=== PATIENT | male | born 1950 | race Caucasian/White ===

== ENCOUNTER 2022-07-08 13:54 | Inpatient (IN) | payer OTHER, MEDICAID ==
[~2022-07-08] VITALS: Ht 185.4 cm; Wt 67.8 kg
[2022-07-08] MEDS ORDERED: SODIUM CHLORIDE 0.9% 1,000 ML IV ONE (14:00)
[2022-07-08 15:04] LABS: Basophils # (auto) 0 10 ^3/uL (0-0.2); Basophils % (auto) 0.3 % (0.0-2.0); Eosinophils # (auto) 0 10 ^3/uL (0-0.8); Eosinophils % (auto) 0.1 % (0.0-7.0); Hemoglobin 11.7 g/dL (13.5-17.5); Lymphocytes # (auto) 0.2 10 ^3/uL (0.4-5.4); Lymphocytes % (auto) 4.4 % (10.0-50.0); Mean Corpuscular Hemoglobin 31.7 pg (28.0-32.0); Mean Corpuscular Hgb Conc. 33.3 g/dL (32.0-36.0); Mean Corpuscular Volume 95.1 fL (80.0-100.0); Monocytes # (auto) 0.2 10 ^3/uL (0-1.3); Monocytes % (auto) 7.1 % (0.0-12.0); Neutrophils % (auto) 88.1 % (37.0-80.0); Nucleated Red Blood Cells % 0.1 %; Red Blood Cells 3.68 10^6/uL (4.5-5.90); Red Cell Distribution Width 14.3 % (11.8-14.3); White Blood Cell 3.4 10^3/uL (4.4-10.8)
[2022-07-08 15:24] LABS: Albumin 2.1 g/dL (3.4-5.0); Calcium 7.8 mg/dL (8.5-10.1); Potassium 3.4 mmol/L (3.5-5.1)
[2022-07-08 15:27] LABS: BUN/Creatinine Ratio 30.4
[2022-07-08 15:30] LABS: Bilirubin, Total 0.5 mg/dL (0.2-1.0); Total Protein 5.8 g/dL (6.4-8.2)
[2022-07-08] MEDS ORDERED: AZITHROMYCIN 500MG/ 250ML 250 ML IV ONE (22:15)
[2022-07-08] MEDS ORDERED: TEMAZEPAM 15 MG CAP PO PRN (22:15)
[2022-07-08] MEDS ORDERED: DEXTROSE (50%) 50ML SYRG IV PRN (22:15)
[2022-07-08] MEDS ORDERED: ONDANSETRON HCL 4 MG/2 ML VIAL IV PRN (22:15)
[2022-07-08 22:35] LABS: Calcium 8.1 mg/dL (8.5-10.1); Potassium 3.2 mmol/L (3.5-5.1)
[2022-07-08 22:40] LABS: BUN/Creatinine Ratio 31.7
[2022-07-09] MEDS: InsuLIN REG 1unit/0.01ml Soln (100units/ml) SC SCH ×6 (02:04→20:28)
[2022-07-09] MEDS: ACCU-CHEK COMFORT CURVE STRIP VI SCH ×6 (02:07→20:30)
[2022-07-09 04:35] LABS: Urine Amorphous Crystal FEW /hpf (None Seen); Urine Bacteria NONE SEEN /hpf (None Seen); Urine Blood 1+ /uL (Negative); Urine Specific Gravity 1.023 (1.001-1.035); Urine WBC 12 /hpf (0 - 3)
[2022-07-09 05:43] LABS: Basophils # (auto) 0 10 ^3/uL (0-0.2); Basophils % (auto) 0.1 % (0.0-2.0); Eosinophils # (auto) 0 10 ^3/uL (0-0.8); Eosinophils % (auto) 0.1 % (0.0-7.0); Hematocrit 29.2 % (41.0-53.0); Hemoglobin 9.4 g/dL (13.5-17.5); Lymphocytes # (auto) 0.5 10 ^3/uL (0.4-5.4); Lymphocytes % (auto) 4.4 % (10.0-50.0); Mean Corpuscular Hemoglobin 31.3 pg (28.0-32.0); Mean Corpuscular Hgb Conc. 32.1 g/dL (32.0-36.0); Mean Corpuscular Volume 97.5 fL (80.0-100.0); Monocytes # (auto) 1.1 10 ^3/uL (0-1.3); Neutrophils # (auto) 10.2 10 ^3/uL (1.6-8.6); Neutrophils % (auto) 86.4 % (37.0-80.0); Red Cell Distribution Width 14.6 % (11.8-14.3); White Blood Cell 11.8 10^3/uL (4.4-10.8)
[2022-07-09 05:56] LABS: Albumin 2.1 g/dL (3.4-5.0); BUN/Creatinine Ratio 33.1; Calcium 7.9 mg/dL (8.5-10.1)
[2022-07-09 05:59] LABS: Bilirubin, Total 0.4 mg/dL (0.2-1.0); Total Protein 6.2 g/dL (6.4-8.2)
[2022-07-09 06:26] LABS: Potassium 2.9 mmol/L (3.5-5.1)
[2022-07-09] MEDS ORDERED: POTASSIUM CHL 20 Meq TABLET PO ONE (07:00)
[2022-07-09] MEDS: LEVOTHYROXINE SODIUM 50 MCG TAB PO SCH (07:09)
[2022-07-09] MEDS ORDERED: cefTRIAXone 1GM/50ML D5W 50 ML IV SCH (09:00)
[2022-07-09] MEDS: ENOXAPARIN SOD 40 MG/0.4 ML SYRINGE SC SCH (10:01)
[2022-07-09 12:01] VITALS: BP 134/72
[2022-07-09] MEDS ORDERED: SODIUM CHLORIDE 0.9% 1,000 ML IV SCH (12:30)
[2022-07-09] MEDS: SODIUM CHLORIDE 0.9% 1,000 ML IV SCH (13:18)
[2022-07-09] MEDS: CEFEPIME 1GM/ 50ML 50 ML IV SCH ×2 (14:26→22:00)
[2022-07-09] MEDS: POTASSIUM CHL 20MEQ/100ML 100 ML IV SCH ×2 (15:12→19:08)
[2022-07-09] MEDS ORDERED: GLIP5TAB12 PO (18:33)
[2022-07-09] MEDS ORDERED: CANA100T PO (18:33)
[2022-07-09] MEDS ORDERED: QUET400T13 PO (18:33)
[2022-07-09] MEDS ORDERED: FAMO20TA10 PO (18:33)
[2022-07-09] MEDS ORDERED: LEVO50TA7 PO (18:33)
[2022-07-09] MEDS ORDERED: DOCU100T15 PO (18:33)
[2022-07-09] MEDS ORDERED: SIMV-13 PO (18:33)
[2022-07-09] MEDS ORDERED: METF-869 PO (18:33)
[2022-07-09] MEDS ORDERED: RISP4TAB53 PO (18:33)
[2022-07-09 22:00] VITALS: BP 131/74
[2022-07-09] MEDS ORDERED: AZITHROMYCIN 500MG/ 250ML 250 ML IV SCH (22:00)
[2022-07-09] MEDS: ATORVASTATIN 20 MG TAB PO SCH (22:52)
[2022-07-10] MEDS: ACCU-CHEK COMFORT CURVE STRIP VI SCH ×6 (00:33→22:00)
[2022-07-10] MEDS: InsuLIN REG 1unit/0.01ml Soln (100units/ml) SC SCH ×6 (00:34→22:00)
[2022-07-10] MEDS: SODIUM CHLORIDE 0.9% 1,000 ML IV SCH ×3 (00:35→18:45)
[2022-07-10] MEDS: POTASSIUM CHL 20MEQ/100ML 100 ML IV SCH (00:35)
[2022-07-10 05:00] VITALS: BP 147/72
[2022-07-10 06:17] LABS: Basophils # (auto) 0 10 ^3/uL (0-0.2); Basophils % (auto) 0.1 % (0.0-2.0); Eosinophils # (auto) 0 10 ^3/uL (0-0.8); Hematocrit 28.6 % (41.0-53.0); Hemoglobin 9.6 g/dL (13.5-17.5); Lymphocytes # (auto) 0.3 10 ^3/uL (0.4-5.4); Lymphocytes % (auto) 1.5 % (10.0-50.0); Mean Corpuscular Hemoglobin 30.9 pg (28.0-32.0); Mean Corpuscular Hgb Conc. 33.4 g/dL (32.0-36.0); Mean Corpuscular Volume 92.6 fL (80.0-100.0); Monocytes % (auto) 5.4 % (0.0-12.0); Neutrophils # (auto) 17.3 10 ^3/uL (1.6-8.6); Red Blood Cells 3.09 10^6/uL (4.5-5.90); Red Cell Distribution Width 13.9 % (11.8-14.3); White Blood Cell 18.6 10^3/uL (4.4-10.8)
[2022-07-10] MEDS: LEVOTHYROXINE SODIUM 50 MCG TAB PO SCH (06:30)
[2022-07-10 06:34] LABS: BUN/Creatinine Ratio 37.7; Potassium 3.4 mmol/L (3.5-5.1)
[2022-07-10] MEDS: ENOXAPARIN SOD 40 MG/0.4 ML SYRINGE SC SCH (09:26)
[2022-07-10] MEDS: CEFEPIME 1GM/ 50ML 50 ML IV SCH ×2 (09:29→22:15)
[2022-07-10 09:36] VITALS: BP 130/84
[2022-07-10] MEDS ORDERED: VANCOMYCIN PER PHARMACY 0 MG IV SCH (11:15)
[2022-07-10] MEDS ORDERED: QUEtiapine FUMARATE 100 MG TAB PO ONE (11:15)
[2022-07-10] MEDS ORDERED: risperiDONE 1 MG TAB PO ONE (11:15)
[2022-07-10] MEDS ORDERED: VANCOMYCIN 1GM/250ML 250 ML IV ONE (11:30)
[2022-07-10 13:02] VITALS: BP 158/93
[2022-07-10 14:56] LABS: Urine Bacteria FEW /hpf (None Seen); Urine Blood 3+ /uL (Negative); Urine Hyaline Cast FEW /lpf (0 - 2); Urine Specific Gravity 1.012 (1.001-1.035); Urine WBC 49 /hpf (0 - 3)
[2022-07-10] MEDS ORDERED: POTASSIUM CHL 20 Meq TABLET PO ONE (16:15)
[2022-07-10] MEDS ORDERED: POTASSIUM CHL 20MEQ/100ML 100 ML IV ONE (16:15)
[2022-07-10 17:00] VITALS: BP 134/78
[2022-07-10] MEDS ORDERED: POTASSIUM CHLORIDE 20 MEQ, LIDOCAINE 1% (LOCAL ANESTH.) 2 ML in SODIUM CHL 0.9% 100 ML IV ONE (18:30)
[2022-07-10] MEDS ORDERED: DEXTROSE (50%) 50ML SYRG IV PRN (20:00)
[2022-07-10 20:10] LABS: INR 1.18 (0.9-1.15)
[2022-07-10] MEDS ORDERED: IOHEXOL 350 MG/ML 100ML IJ ONE (20:29)
[2022-07-10] MEDS ORDERED: QUEtiapine FUMARATE 100 MG TAB ONE ×2 (21:36→21:38)
[2022-07-10 22:00] VITALS: BP 145/80
[2022-07-10] MEDS: ATORVASTATIN 20 MG TAB PO SCH (22:13)
[2022-07-10] MEDS: risperiDONE 1 MG TAB PO SCH (22:14)
[2022-07-10] MEDS: QUEtiapine FUMARATE 100 MG TAB PO SCH (22:14)
[2022-07-11] MEDS: VANCOMYCIN 1GM/250ML 250 ML IV SCH ×2 (04:00→20:00)
[2022-07-11] MEDS: SODIUM CHLORIDE 0.9% 1,000 ML IV SCH ×2 (04:45→12:11)
[2022-07-11 05:00] VITALS: BP 124/67
[2022-07-11] MEDS: ACETAMINOPHEN 325 MG TAB PO PRN (05:25)
[2022-07-11] MEDS: InsuLIN REG 1unit/0.01ml Soln (100units/ml) SC SCH ×4 (06:53→22:00)
[2022-07-11] MEDS: LEVOTHYROXINE SODIUM 50 MCG TAB PO SCH (06:53)
[2022-07-11] MEDS: ACCU-CHEK COMFORT CURVE STRIP VI SCH ×4 (06:59→22:00)
[2022-07-11 07:29] LABS: Potassium 3.7 mmol/L (3.5-5.1)
[2022-07-11 07:38] LABS: BUN/Creatinine Ratio 31.1; Calcium 7.6 mg/dL (8.5-10.1)
[2022-07-11 07:45] LABS: Basophils # (auto) 0 10 ^3/uL (0-0.2); Basophils % (auto) 0.2 % (0.0-2.0); Eosinophils # (auto) 0.1 10 ^3/uL (0-0.8); Eosinophils % (auto) 0.7 % (0.0-7.0); Hemoglobin 8.6 g/dL (13.5-17.5); Lymphocytes # (auto) 0.4 10 ^3/uL (0.4-5.4); Lymphocytes % (auto) 2.2 % (10.0-50.0); Mean Corpuscular Hemoglobin 30.7 pg (28.0-32.0); Mean Corpuscular Volume 93.2 fL (80.0-100.0); Monocytes # (auto) 0.9 10 ^3/uL (0-1.3); Monocytes % (auto) 5.7 % (0.0-12.0); Neutrophils # (auto) 14.7 10 ^3/uL (1.6-8.6); Neutrophils % (auto) 91.2 % (37.0-80.0); Red Blood Cells 2.79 10^6/uL (4.5-5.90); Red Cell Distribution Width 14.1 % (11.8-14.3); White Blood Cell 16.1 10^3/uL (4.4-10.8)
[2022-07-11 09:00] VITALS: BP 142/81
[2022-07-11] MEDS: QUEtiapine FUMARATE 100 MG TAB PO SCH ×2 (10:10→21:48)
[2022-07-11] MEDS: ENOXAPARIN SOD 40 MG/0.4 ML SYRINGE SC SCH (10:10)
[2022-07-11] MEDS: risperiDONE 1 MG TAB PO SCH ×2 (10:10→21:48)
[2022-07-11] MEDS: CEFEPIME 1GM/ 50ML 50 ML IV SCH ×2 (10:11→22:04)
[2022-07-11 13:14] VITALS: BP 158/87
[2022-07-11 17:00] VITALS: BP 159/90
[2022-07-11] MEDS: ATORVASTATIN 20 MG TAB PO SCH (21:49)
[2022-07-11 21:54] VITALS: BP 139/71
[2022-07-12] MEDS: SODIUM CHLORIDE 0.9% 1,000 ML IV SCH ×3 (00:45→20:45)
[2022-07-12 05:00] VITALS: BP 141/85
[2022-07-12] MEDS: LEVOTHYROXINE SODIUM 50 MCG TAB PO SCH (06:31)
[2022-07-12] MEDS: InsuLIN REG 1unit/0.01ml Soln (100units/ml) SC SCH ×4 (06:31→22:51)
[2022-07-12] MEDS: ACCU-CHEK COMFORT CURVE STRIP VI SCH ×4 (06:42→22:00)
[2022-07-12 07:07] LABS: Basophils # (auto) 0 10 ^3/uL (0-0.2); Basophils % (auto) 0.2 % (0.0-2.0); Eosinophils # (auto) 0.4 10 ^3/uL (0-0.8); Eosinophils % (auto) 2.5 % (0.0-7.0); Hematocrit 25.5 % (41.0-53.0); Hemoglobin 8.6 g/dL (13.5-17.5); Lymphocytes # (auto) 0.5 10 ^3/uL (0.4-5.4); Lymphocytes % (auto) 3.4 % (10.0-50.0); Mean Corpuscular Hemoglobin 31.5 pg (28.0-32.0); Mean Corpuscular Hgb Conc. 33.5 g/dL (32.0-36.0); Mean Corpuscular Volume 93.8 fL (80.0-100.0); Neutrophils % (auto) 86.9 % (37.0-80.0); Red Blood Cells 2.72 10^6/uL (4.5-5.90); Red Cell Distribution Width 14.3 % (11.8-14.3); White Blood Cell 14.9 10^3/uL (4.4-10.8)
[2022-07-12 07:27] LABS: Calcium 7.4 mg/dL (8.5-10.1); Potassium 3.4 mmol/L (3.5-5.1)
[2022-07-12 07:30] LABS: BUN/Creatinine Ratio 32.9
[2022-07-12 09:00] VITALS: BP 148/77
[2022-07-12] MEDS: risperiDONE 1 MG TAB PO SCH ×2 (09:50→22:42)
[2022-07-12] MEDS: QUEtiapine FUMARATE 100 MG TAB PO SCH ×2 (09:51→22:43)
[2022-07-12] MEDS: ENOXAPARIN SOD 40 MG/0.4 ML SYRINGE SC SCH (09:52)
[2022-07-12] MEDS: ACETAMINOPHEN 325 MG TAB PO PRN (09:52)
[2022-07-12] MEDS: cefTRIAXone 1GM/50ML D5W 50 ML IV SCH (11:31)
[2022-07-12 13:00] VITALS: BP 130/72
[2022-07-12] MEDS: VANCOMYCIN 1GM/250ML 250 ML IV SCH (13:02)
[2022-07-12 17:00] VITALS: BP 136/68
[2022-07-12 22:00] VITALS: BP 143/79
[2022-07-12] MEDS: ATORVASTATIN 20 MG TAB PO SCH (22:43)
[2022-07-13] MEDS: VANCOMYCIN 1GM/250ML 250 ML IV SCH ×2 (03:58→20:04)
[2022-07-13] MEDS: ACCU-CHEK COMFORT CURVE STRIP VI SCH ×4 (06:31→22:00)
[2022-07-13] MEDS: LEVOTHYROXINE SODIUM 50 MCG TAB PO SCH (06:31)
[2022-07-13] MEDS: InsuLIN REG 1unit/0.01ml Soln (100units/ml) SC SCH ×4 (06:38→22:00)
[2022-07-13] MEDS: SODIUM CHLORIDE 0.9% 1,000 ML IV SCH ×2 (06:45→11:20)
[2022-07-13 08:00] VITALS: BP 137/93
[2022-07-13 09:00] VITALS: BP 137/73
[2022-07-13] MEDS: ENOXAPARIN SOD 40 MG/0.4 ML SYRINGE SC SCH (11:11)
[2022-07-13] MEDS: cefTRIAXone 1GM/50ML D5W 50 ML IV SCH (11:11)
[2022-07-13] MEDS: QUEtiapine FUMARATE 100 MG TAB PO SCH ×2 (11:12→23:03)
[2022-07-13] MEDS: risperiDONE 1 MG TAB PO SCH ×2 (11:13→23:02)
[2022-07-13] MEDS ORDERED: GADOTERATE MEG 10 MMOL/20ml INJ (0.5MMOL/ml) IV ONE (12:55)
[2022-07-13 13:00] VITALS: BP 136/89
[2022-07-13] MEDS: Glucerna Carbsteady SHAKE Vanilla 8oz PO SCH (18:00)
[2022-07-13] MEDS: ATORVASTATIN 20 MG TAB PO SCH (23:03)
[2022-07-14 05:00] VITALS: BP 120/65
[2022-07-14] MEDS: LEVOTHYROXINE SODIUM 50 MCG TAB PO SCH (06:33)
[2022-07-14] MEDS: ACCU-CHEK COMFORT CURVE STRIP VI SCH ×4 (06:33→22:00)
[2022-07-14] MEDS: InsuLIN REG 1unit/0.01ml Soln (100units/ml) SC SCH ×4 (06:34→22:07)
[2022-07-14] MEDS: SODIUM CHLORIDE 0.9% 1,000 ML IV SCH ×3 (07:30→22:45)
[2022-07-14] MEDS: Glucerna Carbsteady SHAKE Vanilla 8oz PO SCH ×2 (08:30→18:30)
[2022-07-14 08:33] VITALS: BP 112/50
[2022-07-14] MEDS: risperiDONE 1 MG TAB PO SCH ×2 (10:18→22:32)
[2022-07-14] MEDS: cefTRIAXone 1GM/50ML D5W 50 ML IV SCH (10:18)
[2022-07-14] MEDS: QUEtiapine FUMARATE 100 MG TAB PO SCH ×2 (10:18→22:32)
[2022-07-14] MEDS: ENOXAPARIN SOD 40 MG/0.4 ML SYRINGE SC SCH (10:19)
[2022-07-14] MEDS: VANCOMYCIN 1GM/250ML 250 ML IV SCH (12:06)
[2022-07-14] MEDS: Pro-Stat SF 30ml Vanilla PO SCH (12:30)
[2022-07-14 12:44] VITALS: BP 103/69
[2022-07-14 17:17] VITALS: BP 132/65
[2022-07-14 22:00] VITALS: BP 130/71
[2022-07-14] MEDS: ATORVASTATIN 20 MG TAB PO SCH (22:31)
[2022-07-15 05:00] VITALS: BP 128/65
[2022-07-15] MEDS: VANCOMYCIN 1GM/250ML 250 ML IV SCH ×2 (06:34→20:10)
[2022-07-15] MEDS: LEVOTHYROXINE SODIUM 50 MCG TAB PO SCH (06:36)
[2022-07-15] MEDS: ACCU-CHEK COMFORT CURVE STRIP VI SCH ×4 (06:36→22:56)
[2022-07-15] MEDS: InsuLIN REG 1unit/0.01ml Soln (100units/ml) SC SCH ×4 (06:43→22:58)
[2022-07-15] MEDS: Glucerna Carbsteady SHAKE Vanilla 8oz PO SCH ×2 (08:17→17:46)
[2022-07-15] MEDS: SODIUM CHLORIDE 0.9% 1,000 ML IV SCH ×3 (08:26→23:10)
[2022-07-15] MEDS: cefTRIAXone 1GM/50ML D5W 50 ML IV SCH (08:26)
[2022-07-15 08:40] VITALS: BP 124/60
[2022-07-15] MEDS: Pro-Stat SF 30ml Vanilla PO SCH (10:00)
[2022-07-15] MEDS: risperiDONE 1 MG TAB PO SCH ×2 (10:25→23:02)
[2022-07-15] MEDS: ENOXAPARIN SOD 40 MG/0.4 ML SYRINGE SC SCH (10:25)
[2022-07-15] MEDS: QUEtiapine FUMARATE 100 MG TAB PO SCH ×2 (10:25→23:02)
[2022-07-15 13:00] VITALS: BP 124/49
[2022-07-15 17:00] VITALS: BP 129/74
[2022-07-15] MEDS: ACETAMINOPHEN 325 MG TAB PO PRN (17:46)
[2022-07-15 21:38] VITALS: BP 113/56
[2022-07-15] MEDS: ATORVASTATIN 20 MG TAB PO SCH (23:01)
[2022-07-16 05:00] VITALS: BP 110/66
[2022-07-16] MEDS: LEVOTHYROXINE SODIUM 50 MCG TAB PO SCH (06:37)
[2022-07-16] MEDS: ACCU-CHEK COMFORT CURVE STRIP VI SCH ×4 (06:41→23:25)
[2022-07-16] MEDS: InsuLIN REG 1unit/0.01ml Soln (100units/ml) SC SCH ×4 (06:46→23:51)
[2022-07-16] MEDS: Pro-Stat SF 30ml Vanilla PO SCH (07:48)
[2022-07-16] MEDS: Glucerna Carbsteady SHAKE Vanilla 8oz PO SCH ×2 (07:48→18:00)
[2022-07-16] MEDS: cefTRIAXone 1GM/50ML D5W 50 ML IV SCH (08:30)
[2022-07-16 08:57] VITALS: BP 116/62
[2022-07-16] MEDS: ENOXAPARIN SOD 40 MG/0.4 ML SYRINGE SC SCH (09:21)
[2022-07-16] MEDS: risperiDONE 1 MG TAB PO SCH ×2 (09:22→23:28)
[2022-07-16] MEDS: QUEtiapine FUMARATE 100 MG TAB PO SCH ×2 (09:22→23:28)
[2022-07-16 10:42] LABS: Basophils # (auto) 0.1 10 ^3/uL (0-0.2); Basophils % (auto) 0.3 % (0.0-2.0); Eosinophils # (auto) 0.6 10 ^3/uL (0-0.8); Mean Corpuscular Hgb Conc. 33.8 g/dL (32.0-36.0); Monocytes # (auto) 0.9 10 ^3/uL (0-1.3)
[2022-07-16 10:44] LABS: INR 1.28 (0.9-1.15); Partial Thromboplastin Time 37.9 sec (24.6-33.4)
[2022-07-16 10:46] LABS: Eosinophils % (auto) 3.3 % (0.0-7.0); Hematocrit 24.2 % (41.0-53.0); Hemoglobin 8.2 g/dL (13.5-17.5); Lymphocytes # (auto) 0.8 10 ^3/uL (0.4-5.4); Lymphocytes % (auto) 4.8 % (10.0-50.0); Mean Corpuscular Hemoglobin 30.8 pg (28.0-32.0); Mean Corpuscular Volume 91.1 fL (80.0-100.0); Neutrophils % (auto) 86.6 % (37.0-80.0); Red Blood Cells 2.66 10^6/uL (4.5-5.90); Red Cell Distribution Width 13.6 % (11.8-14.3); White Blood Cell 17.3 10^3/uL (4.4-10.8)
[2022-07-16 12:40] VITALS: BP 138/80
[2022-07-16] MEDS: VANCOMYCIN 1GM/250ML 250 ML IV SCH ×2 (14:00→16:00)
[2022-07-16] MEDS: SODIUM CHLORIDE 0.9% 1,000 ML IV SCH (16:00)
[2022-07-16 16:38] VITALS: BP 134/81
[2022-07-16] MEDS ORDERED: MAGNESIUM CITRATE SOLUTION 300 ML BTL PO ONE (17:00)
[2022-07-16] MEDS ORDERED: BISACODYL 5 MG EC TAB PO ONE (20:30)
[2022-07-16 22:00] VITALS: BP 93/51
[2022-07-16] MEDS: ATORVASTATIN 20 MG TAB PO SCH (23:29)
[2022-07-16 23:30] LABS: BUN/Creatinine Ratio 25.6; Calcium 6.7 mg/dL (8.5-10.1); Magnesium 1.9 mg/dL (1.6-2.6); Potassium 3.9 mmol/L (3.5-5.1)
[2022-07-17] MEDS: SODIUM CHLORIDE 0.9% 1,000 ML IV SCH ×3 (00:45→20:40)
[2022-07-17] MEDS ORDERED: GOLYTELY 4L KIT PO ONE (02:00)
[2022-07-17] MEDS: VANCOMYCIN 1GM/250ML 250 ML IV SCH ×2 (04:09→20:00)
[2022-07-17 05:00] VITALS: BP 132/68
[2022-07-17] MEDS ORDERED: BISACODYL 10 MG RECT SUPP PR ONE (06:30)
[2022-07-17] MEDS: LEVOTHYROXINE SODIUM 50 MCG TAB PO SCH (06:36)
[2022-07-17] MEDS: ACCU-CHEK COMFORT CURVE STRIP VI SCH ×4 (06:37→22:00)
[2022-07-17] MEDS: InsuLIN REG 1unit/0.01ml Soln (100units/ml) SC SCH ×4 (06:37→22:00)
[2022-07-17 06:50] LABS: Hemoglobin 7.8 g/dL (13.5-17.5); Monocytes # (auto) 0.9 10 ^3/uL (0-1.3)
[2022-07-17 06:53] LABS: Basophils # (auto) 0 10 ^3/uL (0-0.2); Basophils % (auto) 0.3 % (0.0-2.0); Eosinophils # (auto) 0.7 10 ^3/uL (0-0.8); Eosinophils % (auto) 4.2 % (0.0-7.0); Lymphocytes # (auto) 0.8 10 ^3/uL (0.4-5.4); Monocytes % (auto) 5.6 % (0.0-12.0); Neutrophils # (auto) 13.7 10 ^3/uL (1.6-8.6); Neutrophils % (auto) 84.9 % (37.0-80.0); Red Blood Cells 2.52 10^6/uL (4.5-5.90); Red Cell Distribution Width 13.8 % (11.8-14.3); White Blood Cell 16.1 10^3/uL (4.4-10.8)
[2022-07-17 06:54] LABS: BUN/Creatinine Ratio 28.1
[2022-07-17] MEDS: Glucerna Carbsteady SHAKE Vanilla 8oz PO SCH ×2 (08:00→17:16)
[2022-07-17 09:00] VITALS: BP 131/86
[2022-07-17] MEDS: Pro-Stat SF 30ml Vanilla PO SCH (09:38)
[2022-07-17] MEDS: cefTRIAXone 1GM/50ML D5W 50 ML IV SCH (10:21)
[2022-07-17] MEDS: QUEtiapine FUMARATE 100 MG TAB PO SCH ×2 (10:21→22:08)
[2022-07-17] MEDS: rifAMPin 300 MG CAP PO SCH (10:22)
[2022-07-17] MEDS: risperiDONE 1 MG TAB PO SCH ×2 (10:22→22:07)
[2022-07-17] MEDS: ENOXAPARIN SOD 40 MG/0.4 ML SYRINGE SC SCH (10:22)
[2022-07-17 13:00] VITALS: BP 138/77
[2022-07-17] MEDS ORDERED: LIDOCAINE 1% (LOCAL ANESTH.) PF 5ml SDV ID ONE (13:45)
[2022-07-17 17:00] VITALS: BP 133/79
[2022-07-17 20:00] VITALS: BP 101/71
[2022-07-17 22:00] VITALS: BP 101/71
[2022-07-17] MEDS: ATORVASTATIN 20 MG TAB PO SCH (22:07)
[2022-07-17] MEDS: SODIUM CHLOR 0.9% PF (SALINE LOCK) 10ML VIAL/SYR IV SCH (22:10)
[2022-07-18 05:00] VITALS: BP 112/64
[2022-07-18] MEDS: LEVOTHYROXINE SODIUM 50 MCG TAB PO SCH (05:41)
[2022-07-18] MEDS: InsuLIN REG 1unit/0.01ml Soln (100units/ml) SC SCH ×4 (05:41→22:00)
[2022-07-18] MEDS: SODIUM CHLORIDE 0.9% 1,000 ML IV SCH ×2 (05:42→16:45)
[2022-07-18] MEDS: ACCU-CHEK COMFORT CURVE STRIP VI SCH ×4 (05:42→21:40)
[2022-07-18 06:44] LABS: Hemoglobin 8.3 g/dL (13.5-17.5)
[2022-07-18 06:46] LABS: Lymphocytes # (auto) 0.7 10 ^3/uL (0.4-5.4)
[2022-07-18 07:01] LABS: Potassium 3.9 mmol/L (3.5-5.1)
[2022-07-18 07:05] LABS: BUN/Creatinine Ratio 23.6; Calcium 7.8 mg/dL (8.5-10.1)
[2022-07-18 07:08] LABS: Eosinophils # (auto) 0.6 10 ^3/uL (0-0.8); Monocytes # (auto) 0.9 10 ^3/uL (0-1.3)
[2022-07-18 07:32] LABS: Basophils # (auto) 0 10 ^3/uL (0-0.2); Basophils % (auto) 0.4 % (0.0-2.0); Eosinophils % (auto) 4.8 % (0.0-7.0); Hematocrit 24.5 % (41.0-53.0); Lymphocytes % (auto) 5.5 % (10.0-50.0); Mean Corpuscular Hemoglobin 30.9 pg (28.0-32.0); Mean Corpuscular Hgb Conc. 34.1 g/dL (32.0-36.0); Mean Corpuscular Volume 90.7 fL (80.0-100.0); Monocytes % (auto) 6.6 % (0.0-12.0); Neutrophils # (auto) 10.7 10 ^3/uL (1.6-8.6); Neutrophils % (auto) 82.7 % (37.0-80.0); Red Cell Distribution Width 13.5 % (11.8-14.3); White Blood Cell 12.9 10^3/uL (4.4-10.8)
[2022-07-18 08:00] VITALS: BP 101/71
[2022-07-18] MEDS: Glucerna Carbsteady SHAKE Vanilla 8oz PO SCH ×2 (08:00→18:00)
[2022-07-18 09:00] VITALS: BP 121/63
[2022-07-18] MEDS: cefTRIAXone 1GM/50ML D5W 50 ML IV SCH (10:12)
[2022-07-18] MEDS: risperiDONE 1 MG TAB PO SCH ×2 (10:13→21:39)
[2022-07-18] MEDS: Pro-Stat SF 30ml Vanilla PO SCH (10:14)
[2022-07-18] MEDS: QUEtiapine FUMARATE 100 MG TAB PO SCH ×2 (10:14→21:40)
[2022-07-18] MEDS: SODIUM CHLOR 0.9% PF (SALINE LOCK) 10ML VIAL/SYR IV SCH ×2 (10:14→21:40)
[2022-07-18] MEDS: ENOXAPARIN SOD 40 MG/0.4 ML SYRINGE SC SCH (10:14)
[2022-07-18] MEDS: rifAMPin 300 MG CAP PO SCH (10:15)
[2022-07-18 13:00] VITALS: BP 127/64
[2022-07-18] MEDS: VANCOMYCIN 1GM/250ML 250 ML IV SCH (13:00)
[2022-07-18 16:36] VITALS: BP 159/63
[2022-07-18] MEDS: ATORVASTATIN 20 MG TAB PO SCH (21:40)
[2022-07-18 22:00] VITALS: BP 135/76
[2022-07-19] MEDS: SODIUM CHLORIDE 0.9% 1,000 ML IV SCH (03:30)
[2022-07-19] MEDS: VANCOMYCIN 1GM/250ML 250 ML IV SCH ×2 (03:39→20:05)
[2022-07-19 05:00] VITALS: BP 134/67
[2022-07-19 06:26] LABS: Basophils # (auto) 0 10 ^3/uL (0-0.2); Basophils % (auto) 0.3 % (0.0-2.0); Eosinophils # (auto) 0.5 10 ^3/uL (0-0.8); Eosinophils % (auto) 3.6 % (0.0-7.0); Hematocrit 26.5 % (41.0-53.0); Hemoglobin 8.8 g/dL (13.5-17.5); Lymphocytes # (auto) 0.5 10 ^3/uL (0.4-5.4); Mean Corpuscular Hemoglobin 30.4 pg (28.0-32.0); Mean Corpuscular Hgb Conc. 33.3 g/dL (32.0-36.0); Mean Corpuscular Volume 91.4 fL (80.0-100.0); Monocytes # (auto) 0.7 10 ^3/uL (0-1.3); Monocytes % (auto) 5.2 % (0.0-12.0); Neutrophils # (auto) 11.4 10 ^3/uL (1.6-8.6); Neutrophils % (auto) 86.9 % (37.0-80.0); Red Cell Distribution Width 13.6 % (11.8-14.3); White Blood Cell 13.1 10^3/uL (4.4-10.8)
[2022-07-19 06:41] LABS: Potassium 4.6 mmol/L (3.5-5.1)
[2022-07-19 06:46] LABS: BUN/Creatinine Ratio 20.3; Calcium 8.2 mg/dL (8.5-10.1)
[2022-07-19] MEDS: ACCU-CHEK COMFORT CURVE STRIP VI SCH ×4 (06:50→21:38)
[2022-07-19] MEDS: LEVOTHYROXINE SODIUM 50 MCG TAB PO SCH ×2 (06:51→21:36)
[2022-07-19] MEDS: InsuLIN REG 1unit/0.01ml Soln (100units/ml) SC SCH ×4 (06:51→21:35)
[2022-07-19 07:44] LABS: INR 1.13 (0.9-1.15); Partial Thromboplastin Time 39.6 sec (24.6-33.4)
[2022-07-19 09:00] VITALS: BP 138/67
[2022-07-19] MEDS: Glucerna Carbsteady SHAKE Vanilla 8oz PO SCH ×2 (09:38→17:25)
[2022-07-19] MEDS: SODIUM CHLOR 0.9% PF (SALINE LOCK) 10ML VIAL/SYR IV SCH ×2 (09:42→21:35)
[2022-07-19] MEDS: cefTRIAXone 1GM/50ML D5W 50 ML IV SCH (09:45)
[2022-07-19] MEDS: risperiDONE 1 MG TAB PO SCH ×2 (10:00→21:20)
[2022-07-19] MEDS: QUEtiapine FUMARATE 100 MG TAB PO SCH ×2 (10:00→21:20)
[2022-07-19] MEDS: Pro-Stat SF 30ml Vanilla PO SCH (10:30)
[2022-07-19] MEDS: rifAMPin 300 MG CAP PO SCH (10:30)
[2022-07-19] MEDS ORDERED: FLUMAZENIL 0.1 MG/ML INJ 10ML MDV IV ONE (12:32)
[2022-07-19] MEDS ORDERED: NALOXONE HCL 0.4 MG/ML VIAL ONE (12:32)
[2022-07-19] MEDS ORDERED: diphenhdrAMINE HCL 50 MG/1 ML VL ONE (12:33)
[2022-07-19] MEDS: ENOXAPARIN SOD 40 MG/0.4 ML SYRINGE SC SCH (12:33)
[2022-07-19 13:00] VITALS: BP 143/69
[2022-07-19] MEDS: MIDAZOLAM HCL 2MG/2ML 2ml VIAL (1mg/ml) ONE ×2 (13:07→13:10)
[2022-07-19] MEDS: fentaNYL CITRATE 100 MCG/2 ML VL ONE ×2 (13:07→13:10)
[2022-07-19 17:00] VITALS: BP 138/72
[2022-07-19] MEDS: ATORVASTATIN 20 MG TAB PO SCH (21:19)
[2022-07-19 22:00] VITALS: BP 118/52
[2022-07-20 04:25] VITALS: BP 128/66
[2022-07-20] MEDS: ACETAMINOPHEN 325 MG TAB PO PRN (04:47)
[2022-07-20] MEDS: LEVOTHYROXINE SODIUM 50 MCG TAB PO SCH (06:23)
[2022-07-20] MEDS: InsuLIN REG 1unit/0.01ml Soln (100units/ml) SC SCH ×3 (06:23→16:25)
[2022-07-20] MEDS: ACCU-CHEK COMFORT CURVE STRIP VI SCH ×3 (06:24→16:24)
[2022-07-20 06:29] LABS: Calcium 7.5 mg/dL (8.5-10.1)
[2022-07-20 06:32] LABS: Basophils # (auto) 0 10 ^3/uL (0-0.2); Basophils % (auto) 0.4 % (0.0-2.0); Eosinophils # (auto) 0.2 10 ^3/uL (0-0.8); Eosinophils % (auto) 2.2 % (0.0-7.0); Hematocrit 24.2 % (41.0-53.0); Hemoglobin 8.4 g/dL (13.5-17.5); Lymphocytes # (auto) 0.4 10 ^3/uL (0.4-5.4); Lymphocytes % (auto) 3.7 % (10.0-50.0); Mean Corpuscular Hemoglobin 31.5 pg (28.0-32.0); Mean Corpuscular Hgb Conc. 34.7 g/dL (32.0-36.0); Mean Corpuscular Volume 90.7 fL (80.0-100.0); Monocytes # (auto) 0.7 10 ^3/uL (0-1.3); Monocytes % (auto) 6.2 % (0.0-12.0); Neutrophils # (auto) 9.3 10 ^3/uL (1.6-8.6); Neutrophils % (auto) 87.5 % (37.0-80.0); Red Blood Cells 2.66 10^6/uL (4.5-5.90); Red Cell Distribution Width 13.2 % (11.8-14.3); White Blood Cell 10.6 10^3/uL (4.4-10.8)
[2022-07-20 06:33] LABS: BUN/Creatinine Ratio 17.4
[2022-07-20] MEDS: Glucerna Carbsteady SHAKE Vanilla 8oz PO SCH ×2 (08:30→18:44)
[2022-07-20 09:00] VITALS: BP 129/71
[2022-07-20] MEDS: cefTRIAXone 1GM/50ML D5W 50 ML IV SCH (09:10)
[2022-07-20] MEDS: ENOXAPARIN SOD 40 MG/0.4 ML SYRINGE SC SCH (09:11)
[2022-07-20] MEDS: rifAMPin 300 MG CAP PO SCH (09:13)
[2022-07-20] MEDS: QUEtiapine FUMARATE 100 MG TAB PO SCH (09:13)
[2022-07-20] MEDS: Pro-Stat SF 30ml Vanilla PO SCH (09:25)
[2022-07-20] MEDS: SODIUM CHLOR 0.9% PF (SALINE LOCK) 10ML VIAL/SYR IV SCH (09:25)
[2022-07-20] MEDS: VANCOMYCIN 1GM/250ML 250 ML IV SCH (12:45)
[2022-07-20] MEDS: risperiDONE 1 MG TAB PO SCH (12:45)
[2022-07-20 13:00] VITALS: BP 129/76
[2022-07-20 16:43] VITALS: BP 131/85
== END 2022-07-20 19:00 | disposition home health service (06) | DRG 871 ==
LOC: ER 13:54 → EDBD 13:54 → OVERFLOW 22:12 → EAST 07-09 11:05 → TELE-E-ADS 07-09 16:56 → TELE-WESTW 07-09 18:10
PROVIDERS: ADMIT Nurse Practitioner; ATTEND Internal Medicine
PROC: 05H933Z Insertion of Infusion Device into Right Brachial Vein, Percutaneous Approach (ICD-10-PCS; 2022-07-17)
PROC: B54MZZA Ultrasonography of Right Upper Extremity Veins, Guidance (ICD-10-PCS; 2022-07-17)
PROC: 0DJD8ZZ Inspection of Lower Intestinal Tract, Via Natural or Artificial Opening Endoscopic (ICD-10-PCS; principal; 2022-07-19 13:00)
DX: A41.02 Sepsis due to Methicillin resistant Staphylococcus aureus (principal); G93.41 Metabolic encephalopathy; J96.00 Acute respiratory failure, unspecified whether with hypoxia or hypercapnia; J15.6 Pneumonia due to other Gram-negative bacteria; N39.0 Urinary tract infection, site not specified; F84.0 Autistic disorder; N17.9 Acute kidney failure, unspecified; E87.1 Hypo-osmolality and hyponatremia; I38 Endocarditis, valve unspecified; J98.11 Atelectasis; L02.416 Cutaneous abscess of left lower limb; L03.116 Cellulitis of left lower limb; M86.9 Osteomyelitis, unspecified; E87.6 Hypokalemia; D64.9 Anemia, unspecified; E03.9 Hypothyroidism, unspecified; E11.65 Type 2 diabetes mellitus with hyperglycemia; E11.69 Type 2 diabetes mellitus with other specified complication; E78.5 Hyperlipidemia, unspecified; F03.90 Unspecified dementia, unspecified severity, without behavioral disturbance, psychotic disturbance, mood disturbance, and anxiety; F20.9 Schizophrenia, unspecified; L98.419 Non-pressure chronic ulcer of buttock with unspecified severity; R56.9 Unspecified convulsions; Z20.822 Contact with and (suspected) exposure to COVID-19; N32.89 Other specified disorders of bladder
CPT/HCPCS: 36415; 36569; 45378; 71045; 72193; 73723; 74270; 80048; 80053; 80202; 81001; 82962; 83735; 84154; 84484; 85025; 85610; 85730; 86850; 86900; 86901; 87040; 87077; 87086; 87088; 87147; 87186; 87426; 93005; 93306; 96361; 96365; 96366; 96367; 97110; 97116; 97163; 97530; G0378; J0696; J1815; J2001; J2250; J3480

== ENCOUNTER 2022-08-04 20:08 | Inpatient (IN) | payer OTHER, MEDICAID ==
[~2022-08-04] VITALS: Ht 185.4 cm; Wt 50.6 kg
[~2022-08-04 20:08] MED LIST: CANA100T PO; DOCU100T15 PO; FAMO20TA10 PO; GLIP5TAB12 PO; LEVO50TA7 PO; METF-869 PO; QUET400T13 PO; RISP4TAB53 PO; SIMV-13 PO
[2022-08-04 21:33] LABS: Basophils # (auto) 0 10 ^3/uL (0-0.2); Basophils % (auto) 0.4 % (0.0-2.0); Eosinophils # (auto) 0.2 10 ^3/uL (0-0.8); Eosinophils % (auto) 2.5 % (0.0-7.0); Hematocrit 24.7 % (41.0-53.0); Hemoglobin 8.4 g/dL (13.5-17.5); Lymphocytes # (auto) 0.3 10 ^3/uL (0.4-5.4); Lymphocytes % (auto) 3.9 % (10.0-50.0); Mean Corpuscular Hemoglobin 31.5 pg (28.0-32.0); Mean Corpuscular Hgb Conc. 33.8 g/dL (32.0-36.0); Mean Corpuscular Volume 93.1 fL (80.0-100.0); Monocytes # (auto) 0.5 10 ^3/uL (0-1.3); Monocytes % (auto) 5.6 % (0.0-12.0); Neutrophils # (auto) 7.4 10 ^3/uL (1.6-8.6); Neutrophils % (auto) 87.6 % (37.0-80.0); Nucleated Red Blood Cells % 0.1 %; Red Blood Cells 2.66 10^6/uL (4.5-5.90); Red Cell Distribution Width 15.3 % (11.8-14.3); White Blood Cell 8.4 10^3/uL (4.4-10.8)
[2022-08-04 21:48] LABS: INR 1.2 (0.9-1.15)
[2022-08-04 22:07] LABS: Lactic Acid w/Reflex 3.8 mmol/L (0.4-2.0)
[2022-08-04 22:09] LABS: Chloride 115 mmol/L (98-107); Potassium 3.2 mmol/L (3.5-5.1); Sodium 147 mmol/L (136-145)
[2022-08-04 22:14] LABS: Alanine Aminotransferase 42 U/L (16-61); Albumin 1.9 g/dL (3.4-5.0); Anion Gap 6 (5-15); Aspartate Aminotransferase 35 U/L (15-37); BUN/Creatinine Ratio 41.8; Blood Alcohol < 3.0 mg/dL (0-5); Blood Urea Nitrogen 38 mg/dL (7-18); Calcium 8.4 mg/dL (8.5-10.1); Carbon Dioxide 26 mmol/L (21-32); GFR African American 106 mL/min; GFR Non-African American 87 mL/min; Glucose 223 mg/dL (74-106); Lipase 77 U/L (73-393)
[2022-08-04 22:16] LABS: Alkaline Phosphatase 69 U/L (45-117); Bilirubin, Total 0.1 mg/dL (0.2-1.0); Total Protein 5.9 g/dL (6.4-8.2)
[2022-08-04] MEDS ORDERED: LACTATED RINGER'S 1,000 ML IV ONE (22:45)
[2022-08-04] MEDS ORDERED: POTASSIUM CHL 20MEQ/100ML 100 ML IV ONE (22:45)
[2022-08-05] VITALS (23 sets, daily range): BP systolic 89–136; BP diastolic 49–81
[2022-08-05] MEDS ORDERED: VANCOMYCIN 1GM/250ML 250 ML IV ONE (01:45)
[2022-08-05] MEDS ORDERED: LACTATED RINGER'S 2,100 ML IV ONE (01:45)
[2022-08-05] MEDS ORDERED: PIPERACILLIN-TAZOB 3.375GM 100 ML IV ONE (01:45)
[2022-08-05 02:45] LABS: Urine Bacteria FEW /hpf (None Seen); Urine Blood Negative /uL (Negative); Urine Budding Yeast MANY /hpf (None Seen); Urine Mucus FEW (None Seen); Urine Specific Gravity 1.029 (1.001-1.035); Urine WBC 9 /hpf (0 - 3)
[2022-08-05] MEDS ORDERED: ACETAMINOPHEN 325 MG TAB PO PRN (02:45)
[2022-08-05] MEDS ORDERED: ONDANSETRON HCL 4 MG/2 ML VIAL IV PRN (02:45)
[2022-08-05] MEDS ORDERED: HYDROcodone-ACET 5/325MG TAB PO PRN (02:45)
[2022-08-05] MEDS ORDERED: VANCOMYCIN PER PHARMACY 0 MG IV SCH (02:45)
[2022-08-05] MEDS ORDERED: DOCUSATE SOD 100 MG CAP PO PRN (02:45)
[2022-08-05] MEDS ORDERED: DEXTROSE (50%) 50ML SYRG IV PRN (02:45)
[2022-08-05 02:51] LABS: Amphetamine Screen, Urine NEGATIVE (NEGATIVE); Barbiturate Scree,Urine NEGATIVE (NEGATIVE); Benzodiazephine Screen, Urine NEGATIVE (NEGATIVE); Cannabinoid Screen, Urine NEGATIVE (NEGATIVE); Cocaine Screen, Urine NEGATIVE (NEGATIVE)
[2022-08-05 02:53] LABS: Opiate Scree,Urine NEGATIVE (NEGATIVE); Phencyclidine Screen, Urine NEGATIVE (NEGATIVE)
[2022-08-05] MEDS ORDERED: NOREPINEPHRINE 8 MG/250ML KIT 250 ML IV SCH (03:15)
[2022-08-05] MEDS: PIPERACILLIN-TAZOB 3.375GM 100 ML IV SCH ×3 (03:30→19:34)
[2022-08-05] MEDS ORDERED: NITROGLYCERIN 0.4 MG SL TAB SL PRN (03:30)
[2022-08-05] MEDS ORDERED: MORPHINE SULFATE INJ 2 MG/ml SYRG IV PRN (03:30)
[2022-08-05] MEDS: LACTATED RINGER'S 1,000 ML IV SCH ×2 (03:57→22:17)
[2022-08-05] MEDS: ALBUMIN 25% 100 ML IV SCH ×3 (04:45→19:51)
[2022-08-05] MEDS: ACCU-CHEK COMFORT CURVE STRIP VI SCH ×3 (06:00→18:03)
[2022-08-05] MEDS: LEVOTHYROXINE SODIUM 50 MCG TAB PO SCH (06:49)
[2022-08-05] MEDS: InsuLIN REG 1unit/0.01ml Soln (100units/ml) SC SCH ×3 (06:50→18:00)
[2022-08-05 06:55] LABS: Basophils # (auto) 0 10 ^3/uL (0-0.2); Basophils % (auto) 0.2 % (0.0-2.0); Eosinophils # (auto) 0 10 ^3/uL (0-0.8); Hematocrit 23.5 % (41.0-53.0); Lymphocytes # (auto) 0.2 10 ^3/uL (0.4-5.4); Monocytes # (auto) 0.1 10 ^3/uL (0-1.3); Monocytes % (auto) 2.2 % (0.0-12.0); Nucleated Red Blood Cells % 0.2 %; White Blood Cell 4.3 10^3/uL (4.4-10.8)
[2022-08-05 06:56] LABS: Lactic Acid w/Reflex 7.9 mmol/L (0.4-2.0)
[2022-08-05 07:01] LABS: Eosinophils % (auto) 0.7 % (0.0-7.0); Hemoglobin 7.8 g/dL (13.5-17.5); Lymphocytes % (auto) 3.6 % (10.0-50.0); Mean Corpuscular Hgb Conc. 33.4 g/dL (32.0-36.0); Mean Corpuscular Volume 95.9 fL (80.0-100.0); Neutrophils % (auto) 93.3 % (37.0-80.0); Red Blood Cells 2.45 10^6/uL (4.5-5.90)
[2022-08-05 07:08] LABS: Bilirubin, Total 0.2 mg/dL (0.2-1.0); Calcium 8.1 mg/dL (8.5-10.1); Potassium 3.3 mmol/L (3.5-5.1)
[2022-08-05] MEDS ORDERED: ETOMIDATE (2MG/ML) 20ML VIAL IV ONE ×2 (07:51→08:00)
[2022-08-05] MEDS ORDERED: MIDAZOLAM DRIP 50 mg/50mL 50 ML IV ONE (07:52)
[2022-08-05] MEDS ORDERED: ROCURONIUM 10MG/ML 10ML VIAL IV ONE ×2 (07:52→08:00)
[2022-08-05] MEDS ORDERED: POTASSIUM CHL 20MEQ/100ML 100 ML IV ONE (08:00)
[2022-08-05] MEDS: MIDAZOLAM DRIP 50 mg/50mL 50 ML IV SCH (08:16)
[2022-08-05] MEDS: MULTIPLE VITAMIN TAB PO SCH (10:00)
[2022-08-05] MEDS: NOREPINEPHRINE BITARTRATE 32 MG in SODIUM CHL 0.9% 218 ML IV SCH (10:47)
[2022-08-05] MEDS: FAMOTIDINE (10MG/ML) 2ML VL IV SCH ×2 (10:54→22:17)
[2022-08-05] MEDS: ASPirin 81 mg TAB PO SCH (10:54)
[2022-08-05] MEDS: PHENYLEPHRINE INJ 80 MG in SODIUM CHL 0.9% 242 ML IV SCH (11:31)
[2022-08-05] MEDS ORDERED: VASOPRESSIN 20 UNITS in SODIUM CHL 0.9% 99 ML IV SCH (12:30)
[2022-08-05] MEDS: VASOPRESSIN 20 UNITS in SODIUM CHL 0.9% 99 ML IV SCH ×3 (12:37→23:22)
[2022-08-05 12:53] LABS: Hematocrit 22.9 % (41.0-53.0); Hemoglobin 7.6 g/dL (13.5-17.5)
[2022-08-05] MEDS: VANCOMYCIN 1GM/250ML 250 ML IV SCH (13:58)
[2022-08-05] MEDS ORDERED: DEXTROSE 10% 250 ML IV ONE ×2 (17:37→18:00)
[2022-08-05] MEDS ORDERED: PHENYLEPHRINE IV 250 ML IV ONE (20:55)
[2022-08-05] MEDS ORDERED: PHENYLEPHRINE HCL 10 MG/ML VL ONE (20:56)
[2022-08-05] MEDS: HYDROCORTISONE SOD SUCC 100 MG/2ML INJ VIAL IV SCH (22:16)
[2022-08-05] MEDS: ATORVASTATIN 20 MG TAB PO SCH (22:17)
[2022-08-06] VITALS (107 sets, daily range): BP systolic 91–137; BP diastolic 58–84
[2022-08-06] MEDS: MIDAZOLAM DRIP 50 mg/50mL 50 ML IV SCH ×4 (01:05→21:10)
[2022-08-06] MEDS: NOREPINEPHRINE BITARTRATE 32 MG in SODIUM CHL 0.9% 218 ML IV SCH (01:07)
[2022-08-06] MEDS: PHENYLEPHRINE INJ 80 MG in SODIUM CHL 0.9% 242 ML IV SCH (01:07)
[2022-08-06] MEDS: VANCOMYCIN 1GM/250ML 250 ML IV SCH ×2 (02:00→13:16)
[2022-08-06] MEDS: PIPERACILLIN-TAZOB 3.375GM 100 ML IV SCH ×3 (03:30→19:47)
[2022-08-06 04:47] LABS: Eosinophils # (auto) 0.1 10 ^3/uL (0-0.8); Red Cell Distribution Width 15.8 % (11.8-14.3)
[2022-08-06 04:50] LABS: Basophils # (auto) 0.1 10 ^3/uL (0-0.2); Basophils % (auto) 0.4 % (0.0-2.0); Eosinophils % (auto) 0.4 % (0.0-7.0); Hematocrit 22.8 % (41.0-53.0); Hemoglobin 7.8 g/dL (13.5-17.5); Lymphocytes # (auto) 0.4 10 ^3/uL (0.4-5.4); Lymphocytes % (auto) 2.5 % (10.0-50.0); Mean Corpuscular Hemoglobin 31.4 pg (28.0-32.0); Mean Corpuscular Volume 92.4 fL (80.0-100.0); Monocytes # (auto) 0.4 10 ^3/uL (0-1.3); Monocytes % (auto) 2.3 % (0.0-12.0); Neutrophils % (auto) 94.4 % (37.0-80.0); Nucleated Red Blood Cells % 0.3 %; Red Blood Cells 2.47 10^6/uL (4.5-5.90); White Blood Cell 16.9 10^3/uL (4.4-10.8)
[2022-08-06 05:11] LABS: Albumin 2.6 g/dL (3.4-5.0); Calcium 8.1 mg/dL (8.5-10.1); Potassium 3.9 mmol/L (3.5-5.1)
[2022-08-06 05:15] LABS: BUN/Creatinine Ratio 42.9; Bilirubin, Total 0.3 mg/dL (0.2-1.0); Total Protein 5.2 g/dL (6.4-8.2)
[2022-08-06] MEDS: InsuLIN REG 1unit/0.01ml Soln (100units/ml) SC SCH ×4 (06:00→17:24)
[2022-08-06] MEDS: ACCU-CHEK COMFORT CURVE STRIP VI SCH ×4 (06:24→17:13)
[2022-08-06] MEDS: HYDROCORTISONE SOD SUCC 100 MG/2ML INJ VIAL IV SCH ×3 (06:24→21:43)
[2022-08-06] MEDS: LEVOTHYROXINE SODIUM 50 MCG TAB PO SCH (06:48)
[2022-08-06] MEDS: ASPirin 81 mg TAB PO SCH (09:54)
[2022-08-06] MEDS: MULTIPLE VITAMIN TAB PO SCH (09:54)
[2022-08-06] MEDS: FAMOTIDINE (10MG/ML) 2ML VL IV SCH ×2 (09:54→21:43)
[2022-08-06] MEDS: VASOPRESSIN 20 UNITS in SODIUM CHL 0.9% 99 ML IV SCH (10:29)
[2022-08-06] MEDS: LACTATED RINGER'S 1,000 ML IV SCH (18:45)
[2022-08-06] MEDS: ATORVASTATIN 20 MG TAB PO SCH (21:43)
[2022-08-07] VITALS (104 sets, daily range): BP systolic 92–142; BP diastolic 57–87
[2022-08-07] MEDS: ACCU-CHEK COMFORT CURVE STRIP VI SCH ×4 (00:05→18:00)
[2022-08-07] MEDS: InsuLIN REG 1unit/0.01ml Soln (100units/ml) SC SCH ×4 (00:11→18:00)
[2022-08-07] MEDS: VANCOMYCIN 1GM/250ML 250 ML IV SCH (02:00)
[2022-08-07] MEDS: PIPERACILLIN-TAZOB 3.375GM 100 ML IV SCH ×3 (03:02→19:30)
[2022-08-07] MEDS: MIDAZOLAM DRIP 50 mg/50mL 50 ML IV SCH ×4 (03:03→14:51)
[2022-08-07] MEDS: HYDROCORTISONE SOD SUCC 100 MG/2ML INJ VIAL IV SCH ×3 (05:55→22:57)
[2022-08-07] MEDS: LEVOTHYROXINE SODIUM 50 MCG TAB PO SCH (06:53)
[2022-08-07] MEDS: VASOPRESSIN 20 UNITS in SODIUM CHL 0.9% 99 ML IV SCH ×3 (08:43→19:50)
[2022-08-07] MEDS: MULTIPLE VITAMIN TAB PO SCH (09:18)
[2022-08-07] MEDS: ASPirin 81 mg TAB PO SCH (09:18)
[2022-08-07] MEDS: PHENYLEPHRINE INJ 80 MG in SODIUM CHL 0.9% 242 ML IV SCH (09:19)
[2022-08-07] MEDS: FAMOTIDINE (10MG/ML) 2ML VL IV SCH ×2 (09:19→22:57)
[2022-08-07] MEDS: NOREPINEPHRINE BITARTRATE 32 MG in SODIUM CHL 0.9% 218 ML IV SCH (09:19)
[2022-08-07] MEDS: LACTATED RINGER'S 1,000 ML IV SCH (14:47)
[2022-08-07] MEDS: DAKINS QUARTER STR 0.125% (NaHypochlorite) 473 ML TOPICAL SOL TOP SCH (22:58)
[2022-08-07] MEDS: NYSTATIN TOPICAL CREAM 15GM TOP SCH (22:58)
[2022-08-07] MEDS: ATORVASTATIN 20 MG TAB PO SCH (22:58)
[2022-08-08] VITALS (87 sets, daily range): BP systolic 89–140; BP diastolic 58–89
[2022-08-08] MEDS: ACCU-CHEK COMFORT CURVE STRIP VI SCH ×4 (00:35→17:12)
[2022-08-08] MEDS: InsuLIN REG 1unit/0.01ml Soln (100units/ml) SC SCH ×4 (00:40→18:00)
[2022-08-08] MEDS: PIPERACILLIN-TAZOB 3.375GM 100 ML IV SCH ×3 (03:30→20:20)
[2022-08-08] MEDS: HYDROCORTISONE SOD SUCC 100 MG/2ML INJ VIAL IV SCH ×3 (06:00→21:26)
[2022-08-08] MEDS: VASOPRESSIN 20 UNITS in SODIUM CHL 0.9% 99 ML IV SCH ×2 (06:57→18:04)
[2022-08-08] MEDS: LEVOTHYROXINE SODIUM 50 MCG TAB PO SCH (07:00)
[2022-08-08] MEDS: MULTIPLE VITAMIN TAB PO SCH (09:02)
[2022-08-08] MEDS: DAKINS QUARTER STR 0.125% (NaHypochlorite) 473 ML TOPICAL SOL TOP SCH ×2 (09:03→21:27)
[2022-08-08] MEDS: NYSTATIN TOPICAL CREAM 15GM TOP SCH ×2 (09:03→21:27)
[2022-08-08] MEDS: ASPirin 81 mg TAB PO SCH (09:03)
[2022-08-08] MEDS: FAMOTIDINE (10MG/ML) 2ML VL IV SCH ×2 (09:03→21:26)
[2022-08-08 09:29] LABS: Eosinophils # (auto) 0 10 ^3/uL (0-0.8); Monocytes # (auto) 0.7 10 ^3/uL (0-1.3)
[2022-08-08 09:31] LABS: Basophils # (auto) 0.2 10 ^3/uL (0-0.2); Basophils % (auto) 1.1 % (0.0-2.0); Hematocrit 24.1 % (41.0-53.0); Lymphocytes # (auto) 0.9 10 ^3/uL (0.4-5.4); Lymphocytes % (auto) 5.6 % (10.0-50.0); Mean Corpuscular Hemoglobin 30.7 pg (28.0-32.0); Mean Corpuscular Volume 93.1 fL (80.0-100.0); Monocytes % (auto) 4.2 % (0.0-12.0); Neutrophils # (auto) 14.7 10 ^3/uL (1.6-8.6); Neutrophils % (auto) 89.1 % (37.0-80.0); Nucleated Red Blood Cells % 0.2 %; Red Blood Cells 2.59 10^6/uL (4.5-5.90); Red Cell Distribution Width 16.3 % (11.8-14.3); White Blood Cell 16.5 10^3/uL (4.4-10.8)
[2022-08-08 10:05] LABS: BUN/Creatinine Ratio 57.5; Calcium 7.5 mg/dL (8.5-10.1); Potassium 3.9 mmol/L (3.5-5.1)
[2022-08-08] MEDS: NOREPINEPHRINE BITARTRATE 32 MG in SODIUM CHL 0.9% 218 ML IV SCH (10:15)
[2022-08-08] MEDS: PHENYLEPHRINE INJ 80 MG in SODIUM CHL 0.9% 242 ML IV SCH (10:15)
[2022-08-08] MEDS: LACTATED RINGER'S 1,000 ML IV SCH (11:00)
[2022-08-08] MEDS: MIDAZOLAM DRIP 50 mg/50mL 50 ML IV SCH ×3 (16:30→22:36)
[2022-08-08] MEDS: ATORVASTATIN 20 MG TAB PO SCH (21:27)
[2022-08-09] VITALS (81 sets, daily range): BP systolic 84–166; BP diastolic 54–107
[2022-08-09] MEDS: ACCU-CHEK COMFORT CURVE STRIP VI SCH ×4 (00:22→18:02)
[2022-08-09] MEDS: InsuLIN REG 1unit/0.01ml Soln (100units/ml) SC SCH ×4 (00:24→18:03)
[2022-08-09] MEDS: MIDAZOLAM DRIP 50 mg/50mL 50 ML IV SCH ×2 (01:09→20:32)
[2022-08-09] MEDS: PIPERACILLIN-TAZOB 3.375GM 100 ML IV SCH ×3 (04:38→20:37)
[2022-08-09 04:45] LABS: Basophils # (auto) 0 10 ^3/uL (0-0.2); Eosinophils # (auto) 0 10 ^3/uL (0-0.8); Lymphocytes % (auto) 5.4 % (10.0-50.0); Monocytes # (auto) 0.3 10 ^3/uL (0-1.3); Nucleated Red Blood Cells % 0.1 %
[2022-08-09 04:46] LABS: Basophils % (auto) 0.3 % (0.0-2.0); Eosinophils % (auto) 0.1 % (0.0-7.0); Hematocrit 22.8 % (41.0-53.0); Hemoglobin 7.6 g/dL (13.5-17.5); Lymphocytes # (auto) 0.6 10 ^3/uL (0.4-5.4); Mean Corpuscular Hemoglobin 31.5 pg (28.0-32.0); Mean Corpuscular Hgb Conc. 33.5 g/dL (32.0-36.0); Monocytes % (auto) 2.9 % (0.0-12.0); Neutrophils # (auto) 10.9 10 ^3/uL (1.6-8.6); Neutrophils % (auto) 91.3 % (37.0-80.0); Red Blood Cells 2.42 10^6/uL (4.5-5.90); Red Cell Distribution Width 16.2 % (11.8-14.3)
[2022-08-09 04:49] LABS: BUN/Creatinine Ratio 57.5; Calcium 7.8 mg/dL (8.5-10.1); Potassium 3.3 mmol/L (3.5-5.1)
[2022-08-09 04:52] LABS: Bilirubin, Total 0.3 mg/dL (0.2-1.0); Total Protein 5.3 g/dL (6.4-8.2)
[2022-08-09] MEDS: VASOPRESSIN 20 UNITS in SODIUM CHL 0.9% 99 ML IV SCH ×2 (05:11→16:18)
[2022-08-09] MEDS: HYDROCORTISONE SOD SUCC 100 MG/2ML INJ VIAL IV SCH ×3 (06:13→22:20)
[2022-08-09] MEDS: LEVOTHYROXINE SODIUM 50 MCG TAB PO SCH (06:14)
[2022-08-09] MEDS: LACTATED RINGER'S 1,000 ML IV SCH (06:15)
[2022-08-09] MEDS ORDERED: POTASSIUM CHL 20MEQ/100ML 100 ML IV ONE (08:30)
[2022-08-09] MEDS: ASPirin 81 mg TAB PO SCH (09:28)
[2022-08-09] MEDS: DAKINS QUARTER STR 0.125% (NaHypochlorite) 473 ML TOPICAL SOL TOP SCH ×2 (09:28→22:20)
[2022-08-09] MEDS: FAMOTIDINE (10MG/ML) 2ML VL IV SCH ×2 (09:28→22:19)
[2022-08-09] MEDS: MULTIPLE VITAMIN TAB PO SCH (09:29)
[2022-08-09] MEDS: NYSTATIN TOPICAL CREAM 15GM TOP SCH ×2 (09:29→22:20)
[2022-08-09] MEDS ORDERED: VANCOMYCIN 1GM/250ML 250 ML IV ONE (09:45)
[2022-08-09] MEDS ORDERED: VANCOMYCIN PER PHARMACY 0 MG IV SCH (09:45)
[2022-08-09] MEDS ORDERED: FUROSEMIDE 40 MG/4 ML VIAL IV SCH (10:00)
[2022-08-09] MEDS: PHENYLEPHRINE INJ 80 MG in SODIUM CHL 0.9% 242 ML IV SCH (10:15)
[2022-08-09] MEDS: NOREPINEPHRINE BITARTRATE 32 MG in SODIUM CHL 0.9% 218 ML IV SCH (10:15)
[2022-08-09] MEDS: FUROSEMIDE 40 MG/4 ML VIAL IV SCH (18:00)
[2022-08-09] MEDS: ATORVASTATIN 20 MG TAB PO SCH (22:20)
[2022-08-10] VITALS (59 sets, daily range): BP systolic 91–160; BP diastolic 57–107
[2022-08-10] MEDS: ACCU-CHEK COMFORT CURVE STRIP VI SCH ×4 (00:39→18:02)
[2022-08-10] MEDS: VASOPRESSIN 20 UNITS in SODIUM CHL 0.9% 99 ML IV SCH ×2 (03:25→14:32)
[2022-08-10] MEDS: PIPERACILLIN-TAZOB 3.375GM 100 ML IV SCH ×3 (03:40→20:20)
[2022-08-10] MEDS: HYDROCORTISONE SOD SUCC 100 MG/2ML INJ VIAL IV SCH ×3 (05:37→22:04)
[2022-08-10] MEDS: FUROSEMIDE 40 MG/4 ML VIAL IV SCH ×2 (05:37→18:02)
[2022-08-10] MEDS: InsuLIN REG 1unit/0.01ml Soln (100units/ml) SC SCH ×4 (05:38→18:00)
[2022-08-10] MEDS: LEVOTHYROXINE SODIUM 50 MCG TAB PO SCH (06:14)
[2022-08-10 06:50] LABS: Basophils # (auto) 0 10 ^3/uL (0-0.2); Basophils % (auto) 0.1 % (0.0-2.0); Eosinophils # (auto) 0 10 ^3/uL (0-0.8); Eosinophils % (auto) 0.1 % (0.0-7.0); Hematocrit 27.8 % (41.0-53.0); Hemoglobin 9.2 g/dL (13.5-17.5); Lymphocytes # (auto) 0.8 10 ^3/uL (0.4-5.4); Lymphocytes % (auto) 5.4 % (10.0-50.0); Mean Corpuscular Hemoglobin 31.1 pg (28.0-32.0); Mean Corpuscular Hgb Conc. 33.3 g/dL (32.0-36.0); Mean Corpuscular Volume 93.3 fL (80.0-100.0); Monocytes # (auto) 0.7 10 ^3/uL (0-1.3); Monocytes % (auto) 4.8 % (0.0-12.0); Neutrophils # (auto) 12.7 10 ^3/uL (1.6-8.6); Neutrophils % (auto) 89.6 % (37.0-80.0); Nucleated Red Blood Cells % 0.1 %; Red Blood Cells 2.98 10^6/uL (4.5-5.90); Red Cell Distribution Width 16.1 % (11.8-14.3); White Blood Cell 14.1 10^3/uL (4.4-10.8)
[2022-08-10 06:54] LABS: Albumin 2.2 g/dL (3.4-5.0); BUN/Creatinine Ratio 57.7; Calcium 7.9 mg/dL (8.5-10.1); Magnesium 2.1 mg/dL (1.6-2.6)
[2022-08-10 06:57] LABS: Bilirubin, Total 0.5 mg/dL (0.2-1.0); Total Protein 6.1 g/dL (6.4-8.2)
[2022-08-10 07:57] LABS: Potassium 2.7 mmol/L (3.5-5.1)
[2022-08-10] MEDS: FAMOTIDINE (10MG/ML) 2ML VL IV SCH ×2 (09:40→22:04)
[2022-08-10] MEDS: POTASSIUM CHL 20MEQ/100ML 100 ML IV SCH ×3 (09:40→15:05)
[2022-08-10] MEDS: ASPirin 81 mg TAB PO SCH (09:41)
[2022-08-10] MEDS: MULTIPLE VITAMIN TAB PO SCH (09:41)
[2022-08-10] MEDS: DAKINS QUARTER STR 0.125% (NaHypochlorite) 473 ML TOPICAL SOL TOP SCH ×2 (09:41→22:04)
[2022-08-10] MEDS: NYSTATIN TOPICAL CREAM 15GM TOP SCH ×2 (09:42→22:04)
[2022-08-10] MEDS: PHENYLEPHRINE INJ 80 MG in SODIUM CHL 0.9% 242 ML IV SCH (09:42)
[2022-08-10] MEDS: NOREPINEPHRINE BITARTRATE 32 MG in SODIUM CHL 0.9% 218 ML IV SCH (09:42)
[2022-08-10] MEDS: ATORVASTATIN 20 MG TAB PO SCH (22:04)
[2022-08-11] VITALS (57 sets, daily range): BP systolic 74–167; BP diastolic 40–107
[2022-08-11] MEDS: ACCU-CHEK COMFORT CURVE STRIP VI SCH ×5 (00:29→23:33)
[2022-08-11] MEDS: InsuLIN REG 1unit/0.01ml Soln (100units/ml) SC SCH ×5 (00:29→23:33)
[2022-08-11] MEDS: VASOPRESSIN 20 UNITS in SODIUM CHL 0.9% 99 ML IV SCH ×3 (01:39→23:53)
[2022-08-11] MEDS: PIPERACILLIN-TAZOB 3.375GM 100 ML IV SCH ×3 (03:38→19:32)
[2022-08-11 04:03] LABS: Hematocrit 28.1 % (41.0-53.0); Hemoglobin 9.3 g/dL (13.5-17.5); Mean Corpuscular Hemoglobin 30.8 pg (28.0-32.0); Mean Corpuscular Hgb Conc. 33.2 g/dL (32.0-36.0); Mean Corpuscular Volume 92.9 fL (80.0-100.0); Red Blood Cells 3.03 10^6/uL (4.5-5.90); Red Cell Distribution Width 16.3 % (11.8-14.3); White Blood Cell 17.9 10^3/uL (4.4-10.8)
[2022-08-11 04:14] LABS: Band Neutrophils % (manual) 0; Basophils % (manual) 0 (0.0-2.0); Blast Cells 0; Eosinophils % (manual) 0 (0-7); Metamyelocytes % 0; Promyelocytes % 0; Reactive Lymphocytes 0
[2022-08-11 04:21] LABS: Albumin 2.3 g/dL (3.4-5.0); BUN/Creatinine Ratio 57.6
[2022-08-11 04:24] LABS: Bilirubin, Total 0.5 mg/dL (0.2-1.0); Total Protein 6.2 g/dL (6.4-8.2)
[2022-08-11 04:28] LABS: Potassium 2.6 mmol/L (3.5-5.1)
[2022-08-11 04:50] LABS: Lymphocytes % (manual) 7 (10.0-50.0); Monocytes % (manual) 4 (0-12); Myelocytes % 2
[2022-08-11] MEDS: FUROSEMIDE 40 MG/4 ML VIAL IV SCH ×2 (05:50→17:51)
[2022-08-11] MEDS: HYDROCORTISONE SOD SUCC 100 MG/2ML INJ VIAL IV SCH ×3 (05:58→21:33)
[2022-08-11] MEDS: POTASSIUM CHL 20MEQ/100ML 100 ML IV SCH ×6 (06:39→22:34)
[2022-08-11] MEDS: LEVOTHYROXINE SODIUM 50 MCG TAB PO SCH (07:00)
[2022-08-11] MEDS: MIDAZOLAM DRIP 50 mg/50mL 50 ML IV SCH (08:00)
[2022-08-11] MEDS: NOREPINEPHRINE BITARTRATE 32 MG in SODIUM CHL 0.9% 218 ML IV SCH (10:15)
[2022-08-11] MEDS: PHENYLEPHRINE INJ 80 MG in SODIUM CHL 0.9% 242 ML IV SCH (10:15)
[2022-08-11] MEDS: FAMOTIDINE (10MG/ML) 2ML VL IV SCH ×2 (10:16→21:34)
[2022-08-11] MEDS: ASPirin 81 mg TAB PO SCH (10:17)
[2022-08-11] MEDS: MULTIPLE VITAMIN TAB PO SCH (10:18)
[2022-08-11] MEDS: NYSTATIN TOPICAL CREAM 15GM TOP SCH ×2 (10:18→21:36)
[2022-08-11] MEDS: DAKINS QUARTER STR 0.125% (NaHypochlorite) 473 ML TOPICAL SOL TOP SCH ×2 (10:29→21:35)
[2022-08-11] MEDS: ATORVASTATIN 20 MG TAB PO SCH (21:35)
[2022-08-12] VITALS (50 sets, daily range): BP systolic 85–135; BP diastolic 58–93
[2022-08-12] MEDS: POTASSIUM CHL 20MEQ/100ML 100 ML IV SCH ×4 (00:59→20:21)
[2022-08-12] MEDS: PIPERACILLIN-TAZOB 3.375GM 100 ML IV SCH ×3 (04:21→20:24)
[2022-08-12 04:32] LABS: Hematocrit 28.9 % (41.0-53.0); Hemoglobin 9.4 g/dL (13.5-17.5); Mean Corpuscular Hemoglobin 31.4 pg (28.0-32.0); Mean Corpuscular Hgb Conc. 32.5 g/dL (32.0-36.0); Mean Corpuscular Volume 96.7 fL (80.0-100.0); Red Blood Cells 2.99 10^6/uL (4.5-5.90); Red Cell Distribution Width 17.1 % (11.8-14.3); White Blood Cell 24.4 10^3/uL (4.4-10.8)
[2022-08-12 04:47] LABS: Basophils % (manual) 0 (0.0-2.0); Blast Cells 0; Eosinophils % (manual) 0 (0-7); Metamyelocytes % 0; Monocytes % (manual) 0 (0-12); Myelocytes % 0; Promyelocytes % 0; Reactive Lymphocytes 0
[2022-08-12 04:52] LABS: Potassium 3.5 mmol/L (3.5-5.1)
[2022-08-12 04:56] LABS: Albumin 2.2 g/dL (3.4-5.0); BUN/Creatinine Ratio 60.5; Calcium 7.8 mg/dL (8.5-10.1)
[2022-08-12 04:59] LABS: Bilirubin, Total 0.5 mg/dL (0.2-1.0)
[2022-08-12 05:42] LABS: Band Neutrophils % (manual) 5; Lymphocytes % (manual) 10 (10.0-50.0)
[2022-08-12] MEDS: HYDROCORTISONE SOD SUCC 100 MG/2ML INJ VIAL IV SCH ×3 (06:00→21:45)
[2022-08-12] MEDS: FUROSEMIDE 40 MG/4 ML VIAL IV SCH ×2 (06:00→17:36)
[2022-08-12] MEDS: InsuLIN REG 1unit/0.01ml Soln (100units/ml) SC SCH ×3 (06:01→17:48)
[2022-08-12] MEDS: ACCU-CHEK COMFORT CURVE STRIP VI SCH ×3 (06:01→17:38)
[2022-08-12] MEDS: LEVOTHYROXINE SODIUM 50 MCG TAB PO SCH (06:48)
[2022-08-12] MEDS: MIDAZOLAM DRIP 50 mg/50mL 50 ML IV SCH (08:00)
[2022-08-12] MEDS: NOREPINEPHRINE BITARTRATE 32 MG in SODIUM CHL 0.9% 218 ML IV SCH (10:15)
[2022-08-12] MEDS: PHENYLEPHRINE INJ 80 MG in SODIUM CHL 0.9% 242 ML IV SCH (10:15)
[2022-08-12] MEDS: VASOPRESSIN 20 UNITS in SODIUM CHL 0.9% 99 ML IV SCH ×2 (11:00→21:55)
[2022-08-12] MEDS: MULTIPLE VITAMIN TAB PO SCH (13:25)
[2022-08-12] MEDS: DAKINS QUARTER STR 0.125% (NaHypochlorite) 473 ML TOPICAL SOL TOP SCH ×2 (13:25→21:56)
[2022-08-12] MEDS: ASPirin 81 mg TAB PO SCH (13:25)
[2022-08-12] MEDS: NYSTATIN TOPICAL CREAM 15GM TOP SCH ×2 (13:25→21:56)
[2022-08-12] MEDS: FAMOTIDINE (10MG/ML) 2ML VL IV SCH ×2 (13:25→21:45)
[2022-08-12] MEDS: Juven Fruit Punch Powder PACKET 28.8gm PO SCH (18:34)
[2022-08-12] MEDS: Glucerna 1.2 Cal 1Liter BOTTLE GT SCH (18:49)
[2022-08-12] MEDS: ATORVASTATIN 20 MG TAB PO SCH (21:45)
[2022-08-13] VITALS (72 sets, daily range): BP systolic 95–149; BP diastolic 53–106
[2022-08-13] MEDS: InsuLIN REG 1unit/0.01ml Soln (100units/ml) SC SCH ×5 (00:20→23:31)
[2022-08-13 03:16] LABS: Hematocrit 30.5 % (41.0-53.0); Mean Corpuscular Hemoglobin 30.8 pg (28.0-32.0); Mean Corpuscular Hgb Conc. 32.8 g/dL (32.0-36.0); Mean Corpuscular Volume 94.1 fL (80.0-100.0); Red Blood Cells 3.24 10^6/uL (4.5-5.90); Red Cell Distribution Width 16.7 % (11.8-14.3); White Blood Cell 27.2 10^3/uL (4.4-10.8)
[2022-08-13] MEDS: PIPERACILLIN-TAZOB 3.375GM 100 ML IV SCH ×2 (03:23→06:23)
[2022-08-13 03:40] LABS: Albumin 2.3 g/dL (3.4-5.0); BUN/Creatinine Ratio 64.8; Calcium 8.5 mg/dL (8.5-10.1)
[2022-08-13 03:53] LABS: Bilirubin, Total 0.4 mg/dL (0.2-1.0); Total Protein 6.2 g/dL (6.4-8.2)
[2022-08-13 04:15] LABS: Potassium 2.9 mmol/L (3.5-5.1)
[2022-08-13 04:45] LABS: Basophils % (manual) 0 (0.0-2.0); Blast Cells 0; Eosinophils % (manual) 0 (0-7); Metamyelocytes % 0; Monocytes % (manual) 0 (0-12); Promyelocytes % 0; Reactive Lymphocytes 0
[2022-08-13] MEDS: FUROSEMIDE 40 MG/4 ML VIAL IV SCH ×2 (05:37→17:36)
[2022-08-13] MEDS: ACCU-CHEK COMFORT CURVE STRIP VI SCH ×5 (05:38→23:30)
[2022-08-13] MEDS: HYDROCORTISONE SOD SUCC 100 MG/2ML INJ VIAL IV SCH ×3 (05:38→22:34)
[2022-08-13] MEDS ORDERED: POTASSIUM CHL 20MEQ/100ML 100 ML IV ONE (05:49)
[2022-08-13] MEDS: FREE WATER GT SCH ×4 (06:03→23:30)
[2022-08-13] MEDS: POTASSIUM CHL 20MEQ/100ML 100 ML IV SCH ×3 (06:03→10:00)
[2022-08-13] MEDS: LEVOTHYROXINE SODIUM 50 MCG TAB PO SCH (06:40)
[2022-08-13] MEDS ORDERED: D5W 5% 1,000 ML IV SCH (07:30)
[2022-08-13 07:45] LABS: Band Neutrophils % (manual) 5; Lymphocytes % (manual) 3 (10.0-50.0); Myelocytes % 1
[2022-08-13] MEDS: MIDAZOLAM DRIP 50 mg/50mL 50 ML IV SCH (08:00)
[2022-08-13] MEDS: VASOPRESSIN 20 UNITS in SODIUM CHL 0.9% 99 ML IV SCH ×2 (09:14→20:21)
[2022-08-13] MEDS: FAMOTIDINE (10MG/ML) 2ML VL IV SCH ×2 (09:43→22:19)
[2022-08-13] MEDS: MULTIPLE VITAMIN TAB PO SCH (09:44)
[2022-08-13] MEDS: ASPirin 81 mg TAB PO SCH (09:44)
[2022-08-13] MEDS: NYSTATIN TOPICAL CREAM 15GM TOP SCH ×2 (09:45→22:00)
[2022-08-13] MEDS: DAKINS QUARTER STR 0.125% (NaHypochlorite) 473 ML TOPICAL SOL TOP SCH ×2 (09:46→22:00)
[2022-08-13] MEDS ORDERED: POTASSIUM CHLORIDE 20 MEQ in D5W 5% 1,000 ML IV SCH (10:15)
[2022-08-13] MEDS: PHENYLEPHRINE INJ 80 MG in SODIUM CHL 0.9% 242 ML IV SCH (10:15)
[2022-08-13] MEDS: NOREPINEPHRINE BITARTRATE 32 MG in SODIUM CHL 0.9% 218 ML IV SCH (10:15)
[2022-08-13] MEDS: Juven Fruit Punch Powder PACKET 28.8gm PO SCH ×2 (10:30→17:36)
[2022-08-13] MEDS: MIDAZOLAM HCL 2MG/2ML 2ml VIAL (1mg/ml) IV PRN (11:10)
[2022-08-13] MEDS ORDERED: PIPERACILLIN-TAZOB 3.375GM 100 ML IV ONE (11:30)
[2022-08-13] MEDS ORDERED: GADOTERATE MEG 10 MMOL/20ml INJ (0.5MMOL/ml) IV ONE (13:33)
[2022-08-13] MEDS: ATORVASTATIN 20 MG TAB PO SCH (22:19)
[2022-08-13 22:38] LABS: Cholesterol 101 mg/dL (< 200); LDL Cholesterol 25 mg/dL (< 100); Triglycerides 34 mg/dL (< 150)
[2022-08-13 22:40] LABS: HDL Cholesterol 75 mg/dL (40-59)
[2022-08-14] VITALS (59 sets, daily range): BP systolic 81–127; BP diastolic 35–89
[2022-08-14] MEDS: Glucerna 1.2 Cal 1Liter BOTTLE GT SCH (02:36)
[2022-08-14 03:50] LABS: Hematocrit 31.4 % (41.0-53.0); Hemoglobin 10.1 g/dL (13.5-17.5); Mean Corpuscular Hemoglobin 30.5 pg (28.0-32.0); Mean Corpuscular Hgb Conc. 32.2 g/dL (32.0-36.0); Mean Corpuscular Volume 94.8 fL (80.0-100.0); Red Blood Cells 3.31 10^6/uL (4.5-5.90); Red Cell Distribution Width 16.8 % (11.8-14.3); White Blood Cell 26.8 10^3/uL (4.4-10.8)
[2022-08-14 03:55] LABS: Albumin 2.3 g/dL (3.4-5.0); Calcium 8.2 mg/dL (8.5-10.1)
[2022-08-14 03:57] LABS: BUN/Creatinine Ratio 67.4
[2022-08-14 04:00] LABS: Bilirubin, Total 0.3 mg/dL (0.2-1.0); Phosphorus 4.2 mg/dL (2.5-4.90); Total Protein 6.2 g/dL (6.4-8.2)
[2022-08-14 04:22] LABS: Potassium 2.9 mmol/L (3.5-5.1)
[2022-08-14] MEDS: FREE WATER GT SCH ×2 (05:13→22:00)
[2022-08-14] MEDS: ACCU-CHEK COMFORT CURVE STRIP VI SCH ×3 (05:14→17:38)
[2022-08-14] MEDS: InsuLIN REG 1unit/0.01ml Soln (100units/ml) SC SCH ×3 (05:20→17:40)
[2022-08-14 05:43] LABS: Basophils % (manual) 0 (0.0-2.0); Blast Cells 0; Eosinophils % (manual) 0 (0-7); Metamyelocytes % 0; Myelocytes % 0; Promyelocytes % 0; Reactive Lymphocytes 0
[2022-08-14] MEDS: LEVOTHYROXINE SODIUM 50 MCG TAB PO SCH (06:03)
[2022-08-14 07:21] LABS: Band Neutrophils % (manual) 25; Lymphocytes % (manual) 7 (10.0-50.0); Monocytes % (manual) 2 (0-12)
[2022-08-14] MEDS: VASOPRESSIN 20 UNITS in SODIUM CHL 0.9% 99 ML IV SCH ×2 (07:30→19:30)
[2022-08-14] MEDS: Juven Fruit Punch Powder PACKET 28.8gm PO SCH (08:00)
[2022-08-14] MEDS: POTASSIUM CHL 20MEQ/100ML 100 ML IV SCH ×3 (08:29→13:09)
[2022-08-14] MEDS: FAMOTIDINE (10MG/ML) 2ML VL IV SCH ×2 (09:34→22:00)
[2022-08-14] MEDS: ASPirin 81 mg TAB PO SCH (09:34)
[2022-08-14] MEDS: MULTIPLE VITAMIN TAB PO SCH (09:34)
[2022-08-14] MEDS: DAKINS QUARTER STR 0.125% (NaHypochlorite) 473 ML TOPICAL SOL TOP SCH ×2 (09:35→22:00)
[2022-08-14] MEDS: NYSTATIN TOPICAL CREAM 15GM TOP SCH ×2 (09:35→22:00)
[2022-08-14] MEDS ORDERED: FUROSEMIDE 40 MG/4 ML VIAL IV SCH (10:00)
[2022-08-14] MEDS: PHENYLEPHRINE INJ 80 MG in SODIUM CHL 0.9% 242 ML IV SCH (10:00)
[2022-08-14] MEDS: NOREPINEPHRINE BITARTRATE 32 MG in SODIUM CHL 0.9% 218 ML IV SCH (10:00)
[2022-08-14 11:19] LABS: Protein, Urine 32.1 mg/dL (0.0-11.9)
[2022-08-14] MEDS ORDERED: FREE WATER GT ONE (12:45)
[2022-08-14] MEDS: HYDROCORTISONE SOD SUCC 100 MG/2ML INJ VIAL IV SCH ×2 (13:16→22:00)
[2022-08-15] VITALS (41 sets, daily range): BP systolic 80–128; BP diastolic 1–87
[2022-08-15] MEDS: FREE WATER GT SCH ×7 (02:00→22:04)
[2022-08-15 04:19] LABS: Hematocrit 28.5 % (41.0-53.0); Hemoglobin 9.4 g/dL (13.5-17.5); Mean Corpuscular Hemoglobin 31.1 pg (28.0-32.0); Mean Corpuscular Volume 94.5 fL (80.0-100.0); Red Blood Cells 3.01 10^6/uL (4.5-5.90); White Blood Cell 27.2 10^3/uL (4.4-10.8)
[2022-08-15 04:39] LABS: Basophils % (manual) 0 (0.0-2.0); Blast Cells 0; Eosinophils % (manual) 0 (0-7); Metamyelocytes % 0; Myelocytes % 0; Promyelocytes % 0; Reactive Lymphocytes 0
[2022-08-15 04:42] LABS: BUN/Creatinine Ratio 84.5
[2022-08-15] MEDS: VASOPRESSIN 20 UNITS in SODIUM CHL 0.9% 99 ML IV SCH ×2 (05:42→10:03)
[2022-08-15] MEDS: ACCU-CHEK COMFORT CURVE STRIP VI SCH ×5 (06:00→23:20)
[2022-08-15] MEDS: InsuLIN REG 1unit/0.01ml Soln (100units/ml) SC SCH ×5 (06:00→23:20)
[2022-08-15] MEDS: LEVOTHYROXINE SODIUM 50 MCG TAB PO SCH (06:12)
[2022-08-15] MEDS: Juven Fruit Punch Powder PACKET 28.8gm PO SCH ×2 (08:00→17:58)
[2022-08-15 09:09] LABS: Band Neutrophils % (manual) 1; Lymphocytes % (manual) 2 (10.0-50.0); Monocytes % (manual) 2 (0-12)
[2022-08-15] MEDS: POTASSIUM CHL 20MEQ/100ML 100 ML IV SCH ×2 (09:19→10:58)
[2022-08-15] MEDS: DAKINS QUARTER STR 0.125% (NaHypochlorite) 473 ML TOPICAL SOL TOP SCH ×2 (10:00→22:00)
[2022-08-15] MEDS: HYDROCORTISONE SOD SUCC 100 MG/2ML INJ VIAL IV SCH ×2 (10:00→21:25)
[2022-08-15] MEDS: MULTIPLE VITAMIN TAB PO SCH (10:02)
[2022-08-15] MEDS: FAMOTIDINE (10MG/ML) 2ML VL IV SCH ×2 (10:02→21:25)
[2022-08-15] MEDS: ASPirin 81 mg TAB PO SCH (10:02)
[2022-08-15] MEDS: NOREPINEPHRINE BITARTRATE 32 MG in SODIUM CHL 0.9% 218 ML IV SCH (10:03)
[2022-08-15] MEDS: NYSTATIN TOPICAL CREAM 15GM TOP SCH ×2 (10:03→21:25)
[2022-08-15] MEDS: PHENYLEPHRINE INJ 80 MG in SODIUM CHL 0.9% 242 ML IV SCH (10:03)
[2022-08-15] MEDS: D5W 5% 1,000 ML IV SCH ×2 (14:00→23:06)
[2022-08-16] VITALS (35 sets, daily range): BP systolic 81–140; BP diastolic 52–87
[2022-08-16] MEDS: FREE WATER GT SCH ×6 (02:06→21:56)
[2022-08-16] MEDS: VASOPRESSIN 20 UNITS in SODIUM CHL 0.9% 99 ML IV SCH ×2 (02:09→15:03)
[2022-08-16 04:16] LABS: Basophils # (auto) 0 10 ^3/uL (0-0.2); Basophils % (auto) 0.1 % (0.0-2.0); Eosinophils # (auto) 0.1 10 ^3/uL (0-0.8); Eosinophils % (auto) 0.4 % (0.0-7.0); Hematocrit 27.9 % (41.0-53.0); Hemoglobin 9.1 g/dL (13.5-17.5); Lymphocytes # (auto) 0.6 10 ^3/uL (0.4-5.4); Mean Corpuscular Hgb Conc. 32.5 g/dL (32.0-36.0); Mean Corpuscular Volume 95.4 fL (80.0-100.0); Monocytes # (auto) 0.5 10 ^3/uL (0-1.3); Monocytes % (auto) 2.4 % (0.0-12.0); Neutrophils # (auto) 18.1 10 ^3/uL (1.6-8.6); Neutrophils % (auto) 94.1 % (37.0-80.0); Nucleated Red Blood Cells % 0.1 %; Red Blood Cells 2.93 10^6/uL (4.5-5.90); White Blood Cell 19.2 10^3/uL (4.4-10.8)
[2022-08-16 04:32] LABS: BUN/Creatinine Ratio 87.1; Calcium 7.8 mg/dL (8.5-10.1); Potassium 3.2 mmol/L (3.5-5.1)
[2022-08-16] MEDS: ACCU-CHEK COMFORT CURVE STRIP VI SCH ×4 (06:00→23:39)
[2022-08-16] MEDS: LEVOTHYROXINE SODIUM 50 MCG TAB PO SCH (06:29)
[2022-08-16] MEDS: InsuLIN REG 1unit/0.01ml Soln (100units/ml) SC SCH ×4 (06:29→23:41)
[2022-08-16] MEDS: POTASSIUM CHL 20MEQ/100ML 100 ML IV SCH ×2 (06:30→08:45)
[2022-08-16] MEDS: Juven Fruit Punch Powder PACKET 28.8gm PO SCH ×2 (07:58→18:00)
[2022-08-16] MEDS: DAKINS QUARTER STR 0.125% (NaHypochlorite) 473 ML TOPICAL SOL TOP SCH ×2 (09:22→21:57)
[2022-08-16] MEDS: NYSTATIN TOPICAL CREAM 15GM TOP SCH ×2 (09:22→21:57)
[2022-08-16] MEDS: D5W 5% 1,000 ML IV SCH ×2 (09:23→20:20)
[2022-08-16] MEDS: PHENYLEPHRINE INJ 80 MG in SODIUM CHL 0.9% 242 ML IV SCH (09:23)
[2022-08-16] MEDS: ASPirin 81 mg TAB PO SCH (09:52)
[2022-08-16] MEDS: MULTIPLE VITAMIN TAB PO SCH (09:52)
[2022-08-16] MEDS: FAMOTIDINE (10MG/ML) 2ML VL IV SCH ×2 (09:52→21:56)
[2022-08-16] MEDS: NOREPINEPHRINE BITARTRATE 32 MG in SODIUM CHL 0.9% 218 ML IV SCH (09:53)
[2022-08-16] MEDS: HYDROCORTISONE SOD SUCC 100 MG/2ML INJ VIAL IV SCH ×2 (09:57→21:56)
[2022-08-16] MEDS: MIDAZOLAM HCL 2MG/2ML 2ml VIAL (1mg/ml) IV PRN ×3 (10:00→22:50)
[2022-08-17] VITALS (19 sets, daily range): BP systolic 89–135; BP diastolic 55–81
[2022-08-17] MEDS: VASOPRESSIN 20 UNITS in SODIUM CHL 0.9% 99 ML IV SCH (01:13)
[2022-08-17] MEDS: FREE WATER GT SCH ×2 (01:47→05:54)
[2022-08-17] MEDS: MIDAZOLAM HCL 2MG/2ML 2ml VIAL (1mg/ml) IV PRN (01:47)
[2022-08-17] MEDS: D5W 5% 1,000 ML IV SCH (05:54)
[2022-08-17] MEDS: ACCU-CHEK COMFORT CURVE STRIP VI SCH (05:55)
[2022-08-17] MEDS: InsuLIN REG 1unit/0.01ml Soln (100units/ml) SC SCH (06:08)
[2022-08-17] MEDS: LEVOTHYROXINE SODIUM 50 MCG TAB PO SCH (06:38)
[2022-08-17] MEDS: LORazepam 2MG/ML-1ML VIAL IV PRN ×2 (09:26→11:23)
[2022-08-17] MEDS: MORPHINE SULFATE INJ 2 MG/ml SYRG IV PRN ×3 (09:27→15:11)
[2022-08-17] MEDS ORDERED: D5W 5% 1,000 ML IV SCH (12:00)
== END 2022-08-17 11:35 | DRG 870 ==
LOC: ER 20:08 → EDBD 20:08 → OVERFLOW 08-05 03:21 → ICU WEST 08-05 18:52
PROVIDERS: ADMIT Nurse Practitioner Family; ATTEND Hospitalist
PROC: 04HY32Z Insertion of Monitoring Device into Lower Artery, Percutaneous Approach (ICD-10-PCS; principal; 2022-08-05)
PROC: 0BH17EZ Insertion of Endotracheal Airway into Trachea, Via Natural or Artificial Opening (ICD-10-PCS; 2022-08-05)
PROC: 5A1955Z Respiratory Ventilation, Greater than 96 Consecutive Hours (ICD-10-PCS; 2022-08-05)
DX: A41.9 Sepsis, unspecified organism (principal); G93.41 Metabolic encephalopathy; J96.01 Acute respiratory failure with hypoxia; J69.0 Pneumonitis due to inhalation of food and vomit; R65.21 Severe sepsis with septic shock; I63.9 Cerebral infarction, unspecified; E46 Unspecified protein-calorie malnutrition; E87.0 Hyperosmolality and hypernatremia; E87.20 Acidosis, unspecified; G93.1 Anoxic brain damage, not elsewhere classified; N17.9 Acute kidney failure, unspecified; E87.1 Hypo-osmolality and hyponatremia; N39.0 Urinary tract infection, site not specified; Z68.1 Body mass index [BMI] 19.9 or less, adult; Z20.822 Contact with and (suspected) exposure to COVID-19; E03.9 Hypothyroidism, unspecified; D64.9 Anemia, unspecified; E11.65 Type 2 diabetes mellitus with hyperglycemia; E86.0 Dehydration; E87.6 Hypokalemia; E88.09 Other disorders of plasma-protein metabolism, not elsewhere classified; F03.90 Unspecified dementia, unspecified severity, without behavioral disturbance, psychotic disturbance, mood disturbance, and anxiety; L89.90 Pressure ulcer of unspecified site, unspecified stage; R68.0 Hypothermia, not associated with low environmental temperature; E11.22 Type 2 diabetes mellitus with diabetic chronic kidney disease; I12.9 Hypertensive chronic kidney disease with stage 1 through stage 4 chronic kidney disease, or unspecified chronic kidney disease; K59.00 Constipation, unspecified; N18.30 Chronic kidney disease, stage 3 unspecified; E78.00 Pure hypercholesterolemia, unspecified; Z51.5 Encounter for palliative care; Z79.82 Long term (current) use of aspirin; Z79.899 Other long term (current) drug therapy; Z86.14 Personal history of Methicillin resistant Staphylococcus aureus infection; Z79.84 Long term (current) use of oral hypoglycemic drugs
CPT/HCPCS: 36415; 36600; 70450; 70553; 71045; 74177; 76775; 80048; 80053; 80061; 80202; 80307; 80320; 81001; 82010; 82271; 82553; 82570; 82805; 82962; 83036; 83605; 83690; 83735; 83880; 83930; 83935; 83970; 84100; 84132; 84156; 84300; 84443; 84484; 85007; 85014; 85018; 85025; 85027; 85610; 85730; 86850; 86900; 86901; 87040; 87070; 87077; 87081; 87086; 87186; 87205; 87426; 87804; 93005; 93306; 93886; 94002; 94003; 95819; 96361; 96365; 99291; G0378; J1815; J2250; J2543; J3480; J3490; J7060; P9047